=== PATIENT | male | born 1995 ===

== ENCOUNTER 2016-12-03 15:00 | Emergency (ER) | payer BC ==
[2016-12-03 15:15] VITALS: BP 124/78; PULSE 77; TEMP 98.2; O2SAT 99
[2016-12-03 15:49] LABS: BASO % 0.2 % (0.0-2.0); EOS # 0.4 K/uL (0.0-0.7); EOS % 4.9 % (0.0-4.0); HEMATOCRIT 43.9 % (35.0-51.0); LYMPH # 1.6 K/uL (1.0-4.3); LYMPH % 20.3 % (20.0-40.0); MEAN CELL VOLUME 83.8 fL (80.0-94.0); MEAN CORPUSCULAR HEMOGLOBIN 27.1 pg (27.0-31.0); MEAN CORPUSCULAR HGB CONC 32.3 g/dL (33.0-37.0); MEAN PLATELET VOLUME 8.5 fL (7.2-11.7); MONO # 0.4 K/uL (0.0-0.8); MONO % 5.4 % (0.0-10.0); NRBC % 0.1 % (0.0-2.0); RED CELL DISTRIBUTION WIDTH 14.5 % (11.5-14.5); WHITE BLOOD COUNT 7.8 K/uL (4.8-10.8)
[2016-12-03 16:00] LABS: CHLORIDE 101 mmol/L (98-107)
[2016-12-03 16:02] LABS: SODIUM 144 mmol/L (132-148)
[2016-12-03 16:04] LABS: ALB/GLOB RATIO 1.4 (1.0-2.1); ALKALINE PHOSPHATASE 76 U/L (38-126); ALT/SGPT 27 U/L (21-72); AST/SGOT 22 U/L (17-59); BILIRUBIN,TOTAL 0.5 mg/dL (0.2-1.3); BLOOD UREA NITROGEN 4 mg/dL (9-20); CARBON DIOXIDE 28 mmol/L (22-30); GFR AFRICAN-AMERICAN > 60; TOTAL PROTEIN 7.1 g/dL (6.3-8.3)
[2016-12-03 16:05] LABS: ALCOHOL SERUM < 10 mg/dl (0-10); CALCIUM 9.3 mg/dl (8.6-10.4); GLUCOSE,RANDOM 114 mg/dL (75-110)
--- NOTE | 2016-12-03 16:41 | C.PDOC ---
History Of Present Illness 21 yr old male presents ti the ER requesting detox from heroin. Patient reports last use was today. Denies suicidal ideation, homicidal ideation, hallucinations , fever, chest pain, SOB, nausea, vomiting, headache, weakness or numbness. Time Seen by Provider: 12/03/16 15:16 Chief Complaint (Nursing): Substance Abuse History Per: Patient History/Exam Limitations: no limitations Onset/Duration Of Symptoms: Waxing/Waning, Persistent Past Medical History Reviewed: Historical Data, Nursing Documentation, Vital Signs Vital Signs: Last Vital Signs Temp 98.2 F 12/03/16 15:10 Pulse 77 12/03/16 15:10 Resp 20 12/03/16 17:39 BP 124/78 12/03/16 15:10 Pulse Ox 99 12/03/16 16:42 - Medical History PMH: Asthma Family History: States: No Known Family Hx - Social History Hx Alcohol Use: Yes Hx Substance Use: Yes - Immunization History Hx Tetanus Toxoid Vaccination: No Hx Influenza Vaccination: No Hx Pneumococcal Vaccination: No Review Of Systems Except As Marked, All Systems Reviewed And Found Negative. Constitutional: Negative for: Fever Cardiovascular: Negative for: Chest Pain Respiratory: Negative for: Shortness of Breath Gastrointestinal: Negative for: Nausea, Vomiting Neurological: Negative for: Weakness, Numbness, Headache Psych: Negative for: Suicidal ideation Physical Exam - Physical Exam Appears: Non-toxic, No Acute Distress Skin: Normal Color, Warm, Dry, No Rash Head: Atraumatic, Normacephalic Eye(s): bilateral: Normal Inspection, PERRL, EOMI Oral Mucosa: Moist Neck: Normal, Normal ROM, Supple Chest: Symmetrical, No Tenderness Cardiovascular: Rhythm Regular, No Murmur Respiratory: Normal Breath Sounds, No Rales, No Rhonchi, No Stridor, No Wheezing Gastrointestinal/Abdominal: Normal Exam, Soft, No Tenderness, No Guarding, No Rebound Extremity: Normal ROM, No Swelling Neurological/Psych: Oriented x3, Normal Speech, Normal Motor ED Course And Treatment - Laboratory Results Result Diagrams: 12/03/16 15:46 12/03/16 15:46 O2 Sat by Pulse Oximetry: 99 (RA ) Pulse Ox Interpretation: Normal Progress Note: Patient was seen and evaluated by Crisis team. Patient to be discharged home and follow up in ED tomorrow for admission. Medical Decision Making Medical Decision Making: PLAN: * Alcohol Serum * Drug Screen * CBC * CMP * Urinalysis Disposition - Disposition Disposition: HOME/ ROUTINE Disposition Time: 16:15 Condition: GOOD Additional Instructions: Thank you for letting us take care of you today. Your provider was Dr. Johansen. The emergency medical care you received today was directed at your acute symptoms. If you were prescribed any medication, please fill it and take as directed. It may take several days for your symptoms to resolve. Return to the Emergency Department if your symptoms worsen, do not improve, or if you have any other problems. Please contact your doctor or call one of the physicians/clinics you have been referred to that are listed on the Patient Visit Information form that is included in your discharge packet. Bring any paperwork you were given at discharge with you along with any medications you are taking to your follow up visit. Our treatment cannot replace ongoing medical care by a primary care provider (PCP) outside of the emergency department. Thank you for allowing the [facility] team to be part of your care today. Follow up tomorrow for detox admission. Instructions: Narcotic Abuse (ED) Forms: [facility] (Armenian) - Clinical Impression Clinical Impression: Drug abuse, Drug dependence - Scribe Statement The provider has reviewed the documentation as recorded by the Clintonibkaleb Grossman Provider Attestation: All medical record entries made by the Clintonibkaleb were at my direction and personally dictated by me. I have reviewed the chart and agree that the record accurately reflects my personal performance of the history, physical exam, medical decision making, and the department course for this patient. I have also personally directed, reviewed, and agree with the discharge instructions and disposition.
[2016-12-03 17:25] LABS: RBC URINE < 1 /hpf (0-3); URINE BACTERIA OCC (<OCC); URINE BILIRUBIN NEGATIVE (NEGATIVE); URINE BLOOD NEGATIVE (NEGATIVE); URINE CALCIUM OXALATE CRYSTALS FEW /hpf (<OCC); URINE COLOR Yellow (YELLOW); URINE GLUCOSE (UA) NORMAL (Normal); URINE KETONE NEGATIVE (NEGATIVE); URINE LEUKOCYTE ESTERASE NEG Leu/uL (Negative); URINE PROTEIN NEGATIVE (NEGATIVE); URINE UROBILINOGEN NORMAL mg/dL (0.2-1.0); WBC URINE 2 /hpf (0-5)
[2016-12-03 17:39] VITALS: RESP 20
== END 2016-12-03 17:39 | disposition home or self-care (01) ==
LOC: C.ER 15:00
DX: F11.20 Opioid dependence, uncomplicated (principal)
CPT/HCPCS: 80053; 81001; 85025; 99283; G0480

== ENCOUNTER 2016-12-04 08:48 | Inpatient (IN) | payer BC ==
[2016-12-04 09:05] VITALS: BMI 23.6
--- NOTE | 2016-12-04 09:20 | C.PDOC ---
History Of Present Illness 21 y/o male presents to ED for detox. Patient was seen in ER for similar yesterday; prescreened and advised to return today for admission. Patient reports poly-substance abuse including opiates, heroin, benzos. Notes last use was this morning. Denies any SI/HI, withdrawal symptoms, or other complaints on arrival. Time Seen by Provider: 12/04/16 08:50 Chief Complaint (Nursing): Substance Abuse History Per: Patient History/Exam Limitations: no limitations Current Symptoms Are (Timing): Still Present Suicide/Self Injury Attempted (Context): None Recent travel outside of the [place]: No Past Medical History Reviewed: Historical Data, Nursing Documentation, Vital Signs Vital Signs: Last Vital Signs Temp 98.2 F 12/04/16 09:05 Pulse 94 H 12/04/16 09:05 Resp 20 12/04/16 09:05 BP 109/66 12/04/16 09:05 Pulse Ox 99 12/04/16 11:41 - Medical History PMH: Asthma Family History: States: Unknown Family Hx - Social History Hx Alcohol Use: Yes Hx Substance Use: Yes - Immunization History Hx Tetanus Toxoid Vaccination: No Hx Influenza Vaccination: No Hx Pneumococcal Vaccination: No Review Of Systems Except As Marked, All Systems Reviewed And Found Negative. Constitutional: Negative for: Fever, Chills Cardiovascular: Negative for: Chest Pain Respiratory: Negative for: Cough, Shortness of Breath Gastrointestinal: Negative for: Nausea, Vomiting, Abdominal Pain Skin: Negative for: Rash Neurological: Negative for: Headache, Dizziness Psych: Negative for: Suicidal ideation, Withdrawal Physical Exam - Physical Exam Appears: Non-toxic, No Acute Distress Skin: Normal Color, Warm, Dry Head: Atraumatic, Normacephalic Oral Mucosa: Moist Chest: Symmetrical Cardiovascular: Rhythm Regular Respiratory: Normal Breath Sounds, No Rales, No Rhonchi, No Wheezing Gastrointestinal/Abdominal: Soft, No Tenderness Back: Normal Inspection Extremity: Normal ROM, Capillary Refill (< 2 sec.) Neurological/Psych: Oriented x3, Normal Speech, Normal Cognition ED Course And Treatment - Laboratory Results Result Diagrams: 12/04/16 09:24 12/04/16 09:24 Lab Interpretation: Normal O2 Sat by Pulse Oximetry: 99 (RA) Pulse Ox Interpretation: Normal Progress Note: Bloodwork, crisis eval ordered. 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 - Scribe Statement The provider has reviewed the documentation as recorded by the Scribe SM All medical record entries made by the Scribe were at my direction and personally dictated by me. I have reviewed the chart and agree that the record accurately reflects my personal performance of the history, physical exam, medical decision making, and the department course for this patient. I have also personally directed, reviewed, and agree with the discharge instructions and disposition. Decision To Admit - Pt Status Changed To: Hospital Disposition Of: Inpatient - Admit Certification Admit to Inpatient:: After my assessment, the patient will require hospitalization for at least two midnights. This is because of the severity of symptoms shown, intensity of services needed, and/or the medical risk in this patient being treated as an outpatient. - InPatient: Physician Admission Certification: I certify that this patient requires 2 or more midnights of care for the following reason:: Opioid Abuse - . Bed Request Type: Detox Admitting Physician: Kapil Srivastava Patient Diagnosis: Drug abuse
[2016-12-04 09:34] LABS: BASO % 0.4 % (0.0-2.0); EOS # 0.4 K/uL (0.0-0.7); EOS % 5.7 % (0.0-4.0); HEMATOCRIT 41.5 % (35.0-51.0); LYMPH # 1.6 K/uL (1.0-4.3); LYMPH % 20.9 % (20.0-40.0); MEAN CELL VOLUME 83.3 fL (80.0-94.0); MEAN CORPUSCULAR HEMOGLOBIN 27.1 pg (27.0-31.0); MEAN CORPUSCULAR HGB CONC 32.6 g/dL (33.0-37.0); MEAN PLATELET VOLUME 8.7 fL (7.2-11.7); MONO # 0.6 K/uL (0.0-0.8); MONO % 7.5 % (0.0-10.0); RED CELL DISTRIBUTION WIDTH 14.4 % (11.5-14.5); WHITE BLOOD COUNT 7.8 K/uL (4.8-10.8)
[2016-12-04 09:54] LABS: CHLORIDE 105 mmol/L (98-107)
[2016-12-04 09:55] LABS: POTASSIUM 3.9 mmol/L (3.6-5.2); SODIUM 142 mmol/L (132-148)
[2016-12-04 09:57] LABS: CARBON DIOXIDE 27 mmol/L (22-30); GFR AFRICAN-AMERICAN > 60
[2016-12-04 09:58] LABS: ALB/GLOB RATIO 1.4 (1.0-2.1); ALKALINE PHOSPHATASE 70 U/L (38-126); ALT/SGPT 30 U/L (21-72); AST/SGOT 20 U/L (17-59); BILIRUBIN,TOTAL 0.5 mg/dL (0.2-1.3); BLOOD UREA NITROGEN 4 mg/dL (9-20); CALCIUM 9.1 mg/dl (8.6-10.4); GLUCOSE,RANDOM 95 mg/dL (75-110); TOTAL PROTEIN 6.5 g/dL (6.3-8.3)
[2016-12-04 09:59] LABS: ALCOHOL SERUM < 10 mg/dl (0-10)
[2016-12-04 10:20] LABS: RBC URINE 2 /hpf (0-3); URINE BILIRUBIN NEGATIVE (NEGATIVE); URINE BLOOD NEGATIVE (NEGATIVE); URINE COLOR Yellow (YELLOW); URINE GLUCOSE (UA) NORMAL (Normal); URINE KETONE NEGATIVE (NEGATIVE); URINE LEUKOCYTE ESTERASE NEG Leu/uL (Negative); URINE PROTEIN NEGATIVE (NEGATIVE); URINE UROBILINOGEN NORMAL mg/dL (0.2-1.0)
--- NOTE | 2016-12-04 14:26 | PCM.BM ---
<Homa Ornelas - Last Filed: 12/04/16 14:25> Treatment assets and liabiliti Patient Assests: adapts well, cooperative, educated, ADL independent, physically healthy, negotiates basic needs Patient Liabilities: substance abuse - Milieu Protocol Maintain good personal hygiene: daily Encourage regular showers, daily Remind patient to perform daily oral care, daily Assist patient to perform ADL's Conduct patient checks and document Observation sheet: Q15 minutes Maintain personal safety: every shift Educate patient to report safety concerns to staff, every shift Monitor environment for contraband/sharps Medication safety: Monitor for expected outcome, potential side effects: every shift, Assess barriers to learning: every shift, Assess readiness for medication education: every shift <Kapil Srivastava - Last Filed: 12/05/16 10:31> - Diagnosis (1) Opioid dependence Status: Acute Interventions: 12/05/16 10:32 Methodone (2) Alcohol use disorder, severe, dependence Status: Acute Interventions: 12/05/16 10:33 Librium detox protocol (3) Cocaine use disorder, severe, dependence Status: Acute Interventions: 12/05/16 10:33 supportive therapy (4) Cannabis use disorder, severe, dependence Status: Acute Interventions: 12/05/16 10:34 Supportive Therapy <Nathalia Muller - Last Filed: 12/05/16 11:05> Family Contact Family involvement: Family/SO is involved Family contact: Patient agrees to contact - Goals for Treatment Patient goals for treatment: Transition from detox to long-term rehab at [facility] in [place], [place] Discharge/Continuing Care - Education Needs Education Needs: Patient Medication, Patient Diagnosis/Disease Process, Patient Coping Skills, Patient Placement options, Patient Health Practices/Safety ( fentanyl education) - Discharge Discharge Criteria: No longer exhibiting s/s of withdrawal, Reduction of target symptoms Discharge to:: Substance Abuse Rehab - Treatment Team Participation Patient/Family/SO Statement: 12/05/16 11:05 "I did my research..I wanna go to [facility]."
[2016-12-04] MEDS ORDERED: Albuterol HFA 90 mcg/actuation (8 g) INH PRN (14:48)
[2016-12-05] MEDS: BREO ELLIPTA 200MCG/25MCG INH SCH (10:50)
[2016-12-05 16:44] VITALS: RESP 18
--- NOTE | 2016-12-05 18:13 | PCM.PSYCH ---
Initial Psychiatric Evaluation - Initial Psychiatric Evaluation Type of Admission: Voluntary Legal Status: Capacity Chief Complaint (in patient's own words): I need help for my substance use History of Present Illness and Precipitating Events: Patient is a 21 years old, single, unemployed, never and has no children , male, who was admitted for the treatment of withdrawing from heroin , cocaine, cannabis and alcohol. Reported he started using Percocet 4 years ago. He was buying from [facility] and was taking 20 mg once daily. About 2 years ago, reported started using heroin. In the big meeting was taking 2 bundles daily. Currently taking 8-10 bags daily , sniffing. His last use reported yesterday. Patient was in methadone maintenance treatment program about 4 months ago. He was in the program for about 3 months but left the program a month ago and relapsed on heroine again. Cocaine, started about 1 year ago. Was taking 1-2 g daily, smoking. Last use 3 days ago. Cannabis, started at the age of 13 years. Was taking 1 g daily. Last use reported 3 days ago. Alcohol, started at the age of 13 years, increased gradually, up to 1 pint daily. Last use reported 3 days ago. Also smokes 8-10 cigarettes daily and is requesting for nicotine patch. Patient was born in [place] as high school graduation, not working for last 4 months. 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 Lives with parents and is supported by parents. Never and has no children. Height is 5 feet 8 inches and weight is 155 pounds., Current Medications: Active Medications Generic Name Dose Route Start Last Admin Trade Name Freq PRN Reason Stop Dose Admin Albuterol 1 puff 12/04/16 14:48 Ventolin Hfa 90 Mcg/Actuation (8 G) INH RQ6 PRN Shortness of Breath Clonidine HCl 0.1 mg 12/05/16 18:06 Catapres PO Q8 PRN COWS Score More or Equal to 5 Dicyclomine HCl 10 mg 12/04/16 22:05 12/04/16 22:16 Bentyl PO 10 mg QID PRN Administration stomach cramps & muscle spasm Home Med 1 puff 12/05/16 08:00 12/05/16 10:50 Patient's Own Inhaler INH 1 puff RQ24 ANDRE Administration Hydroxyzine HCl 25 mg 12/04/16 17:15 12/05/16 17:16 Atarax PO 25 mg Q6H PRN Administration Anxiety Loperamide HCl 2 mg 12/05/16 18:06 Imodium PO Q8 PRN Diarrhea Nicotine 1 patch 12/04/16 15:55 12/05/16 10:50 Nicoderm Cq TD 1 patch DAILY ANDRE Administration Ondansetron HCl 4 mg 12/05/16 18:06 Zofran Tab PO Q8 PRN Nausea/Vomiting Trazodone HCl 50 mg 12/04/16 22:00 12/04/16 22:16 Desyrel PO 50 mg HS PRN Administration Insomnia Past Psychiatric History - Past Psychiatric History Prior Professional Help: Methadone maintenance treatment program History of Abuse: None reported History of ETOH/Drug Use: See HPI History of Family Illness: None reported Pertinent Medical Hx (Current Medical&Sleep Prob, Allergies): Allergies Allergy/AdvReac Type Severity Reaction Status Date / Time auguste Allergy Verified 12/03/16 15:15 peach Allergy Verified 12/03/16 15:15 plum Allergy Verified 12/03/16 15:15 cherries Allergy Uncoded 12/03/16 15:15 Albuterol Sulfate [Proair Hfa] 0.09 mg IH DAILY 12/04/16 Fluticasone/Vilanterol [Breo Ellipta 100-25 Mcg INH] 1 each IH DAILY 12/04/16 Asthma Review of Systems - Psychiatric Psychiatric: Other Mental Status Examination - Personal Presentation Personal Presentation: Looks stated age - Affect Affect: Other - Motor Activity Motor Activity: Calm (Appropriate) - Reliability in Providing Information Reliability in Providing Information: Fair - Speech Speech: Organized - Mood Mood: Anxious - Formal Thought Process Formal Thought Process: No Impairment - Hallucinations/Delusions Hallucinations: Other (None reported) Delusions: Other - Obsessions/Compulsions Obsessions: None Compulsions: None - Cognitive Functions Orientation: Person, Place, Situation, Time Sensorium: Alert Attention/Concentration: Attentive Abstract Thinking: Sanford Estimate of Intelligence: Average Judgement: Intact, as evidence by: Insight regarding need for hospitalization Memory: Recent intact, as evidence by: 3/3 object recall, Remote intact, as evidenced by: Ability to recall historical events - Risk Risk: Withdrawal, Diminished functioning - Strength & Assets Inventory Strength & Assets Inventory: Family support, Cooperative - Limitations Limitations: Other DSM 5 DX - DSM 5 DSM 5 Diagnosis: Opiate use disorder severe Cocaine use disorder severe Cannabis use disorder severe Alcohol use disorder severe - Recommended/Plan of Treatment Treatment Recommendations and Plan of Treatment: Issues education Supportive therapy Will start methadone taper for opiate withdrawal symptoms Librium every 12 when necessary for alcohol withdrawal symptoms Other when necessary medications Medications for asthma Projected ELOS: 4-5 days Discharge Plan and Discharge Criteria: [facility] after discharge from the hospital - Smoking Cessation Smoking Cessation Initiated: Yes
[2016-12-06] MEDS: BREO ELLIPTA 200MCG/25MCG INH SCH (10:03)
[2016-12-06 11:00] VITALS: BP 104/73; PULSE 67; TEMP 97.8; O2SAT 98
--- NOTE | 2016-12-06 15:38 | PCM.PYCHDC ---
Mental Status Examination - Mental Status Examination Orientation: Person, Place, Situation, Time Memory: Intact Mood: Neutral Affect: Other (Appropriate) Speech: Appropriate Attention: WNL Concentration: WNL Association: WNL Fund of Knowledge: WNL Formal Thought Process: No Impairment Description of patient's judgement and insight: Poor Psychotic Thoughts and Behaviors: None Suicidal Ideation: No Current Homicidal Ideation?: No Discharge Summary - Discharge Note Reason for Hospitalization: Opiate use disorder severe Cocaine use disorder severe Cannabis use disorder severe Alcohol use disorder severe Laboratory Data: Reviewed Consultations:: List each consultation separately and include: 1. Reason for request. 2. Findings. 3. Follow-up Summary of Hospital Course include:: 1. Description of specific treatment plan utilized for patients during their course of treatmen. 2. Summarize the time- course for resolution of acute symptoms and/or regressed behaviors. 3. Describe issues identified and worked on during hospitalization. 4. Describe medication utilized. 5. Describe medical problems identified and treated. 6. Reassessment of suicide risk Summary of Hospital Course: Patient is a 21 years old, single, unemployed, never and has no children , male, who was admitted for the treatment of withdrawing from heroin , cocaine, cannabis and alcohol. Reported he started using Percocet 4 years ago. He was buying from [employer] and was taking 20 mg once daily. About 2 years ago, reported started using heroin. In the big meeting was taking 2 bundles daily. Currently taking 8-10 bags daily , sniffing. His last use reported yesterday. Patient was in methadone maintenance treatment program about 4 months ago. He was in the program for about 3 months but left the program a month ago and relapsed on heroine again. Cocaine, started about 1 year ago. Was taking 1-2 g daily, smoking. Last use 3 days ago. Cannabis, started at the age of 13 years. Was taking 1 g daily. Last use reported 3 days ago. Alcohol, started at the age of 13 years, increased gradually, up to 1 pint daily. Last use reported 3 days ago. Also smokes 8-10 cigarettes daily and is requesting for nicotine patch. Patient was born in [place] as high school graduation, not working for last 4 months. 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 Lives with parents and is supported by parents. Never and has no children. Height is 5 feet 8 inches and weight is 155 pounds., In the hospital patient started on methadone for opiate withdrawal symptoms. Librium and when necessary medications. Patient started feeling better. Today patient decided to leave the unit without completing the treatment. Education provided about completion of detox patient refused. Patient was educated that in case of any adverse event including, overdose, decompensation, relapse or even patient will be responsible for his affects. Patient agreed but still refused to stay and it unit AMA. 8 time of evaluation and discharge, patient was awake alert oriented 3, had no delusions, no auditory or visual hallucinations, no suicidal ideations or homicidal ideations. Patient was discharged in a stable condition. - Diagnosis (1) Opioid dependence Status: Acute (2) Alcohol use disorder, severe, dependence Status: Acute (3) Cocaine use disorder, severe, dependence Status: Acute (4) Cannabis use disorder, severe, dependence Status: Acute - Final Diagnosis (DSM 5) Condition upon Discharge: STABLE Disposition: AGAINST MEDICAL ADVICE Follow-up Treatment Plan: Preference were provided to other places including different methadone maintenance clinic says patient wanted to go to a [facility] clinic or [facility]. - Smoking Cessation Smoking Cessation Medication prescribed: Yes - Antipsychotic Medications Pt discharged on 2 or more routine antipsychotic medications: No
== END 2016-12-06 10:45 | disposition left against medical advice (07) | DRG 894 ==
LOC: C.ER 08:48 → C.7D 11:29
PROC: HZ2ZZZZ Detoxification Services for Substance Abuse Treatment (ICD-10-PCS; principal; 2016-12-04)
DX: F11.23 Opioid dependence with withdrawal (principal); F14.20 Cocaine dependence, uncomplicated; F17.210 Nicotine dependence, cigarettes, uncomplicated; F12.20 Cannabis dependence, uncomplicated; F10.10 Alcohol abuse, uncomplicated